=== PATIENT | female | born 1945 | race Asian ===

== ENCOUNTER 2016-03-16 09:24 | Day surgery (SDC) | payer OTHER, BC ==
[2016-03-11 17:52] VITALS: BMI 18.3
[~2016-03-16 09:24] MED LIST: ACETAMINOPHEN 325 MG TABLET (FP) PO PRN; LIDOCAINE HCL 1% PRESERVATIVE FREE - 30ML VIAL IO ONE
[2016-03-16] MEDS ORDERED: PHENYLEPHRINE 2.5% OPHTH SOLN 15 ML BOTTLE ONE (09:42)
[2016-03-16] MEDS ORDERED: CIPROFLOXACIN 0.3% EYE DROPS 5 ML BOTTLE ONE (09:42)
[2016-03-16] MEDS ORDERED: FLURBIPROFEN 0.03% OPHTH SOLN 2.5 ML BOTTLE ONE (09:42)
[2016-03-16] MEDS ORDERED: TROPICAMIDE 1% OPHTH SOLN 15 ML BOTTLE ONE (09:42)
[2016-03-16] MEDS ORDERED: CYCLOPENTOLATE HCL 1% OPHTH SOLN 2 ML BOTTLE ONE (09:42)
[2016-03-16 09:49] VITALS: TEMP 97.3
[2016-03-16] MEDS: PHENYLEPHRINE 2.5% OPHTH SOLN 15 ML BOTTLE OP SCH ×3 (09:55→10:05)
[2016-03-16] MEDS: FLURBIPROFEN 0.03% OPHTH SOLN 2.5 ML BOTTLE OP SCH ×3 (09:55→10:05)
[2016-03-16] MEDS: CIPROFLOXACIN HCL 0.3% OPHTH 2.5ML BOTTLE OP SCH ×3 (09:55→10:05)
[2016-03-16] MEDS: TROPICAMIDE 1% OPHTH SOLN 15 ML BOTTLE OP SCH ×3 (09:55→10:05)
[2016-03-16] MEDS: CYCLOPENTOLATE HCL 1% OPHTH SOLN 2 ML BOTTLE OP SCH ×3 (09:55→10:05)
[2016-03-16] MEDS ORDERED: LIDOCAINE HCL/PF 2% SDV 5ML VIAL ONE (11:06)
[2016-03-16] MEDS ORDERED: BUPIVACAINE HCL/PF 0.75% 10 ML VIAL ONE (11:06)
[2016-03-16] MEDS ORDERED: PROPOFOL 20 ML ONE (11:16)
[2016-03-16] MEDS ORDERED: MIDAZOLAM HCL 2 MG/2 ML SINGLE DOSE VIAL ONE (11:16)
[2016-03-16] MEDS ORDERED: BUPIVACAINE HCL/PF 0.75% 10 ML VIAL RB ONE (11:23)
[2016-03-16] MEDS ORDERED: LIDOCAINE HCL/PF 2% SDV 5ML VIAL PNB ONE ×2 (11:23→11:25)
[2016-03-16] MEDS ORDERED: BUPIVACAINE HCL/PF 0.75% 10 ML VIAL PNB ONE (11:25)
[2016-03-16] MEDS ORDERED: CHONDROITIN SU A/HYALUR SOD 1 KIT IO ONE (11:32)
[2016-03-16] MEDS ORDERED: LIDOCAINE HCL 1% PRESERVATIVE FREE - 30ML VIAL IO ONE (11:32)
[2016-03-16] MEDS ORDERED: TRYPAN BLUE 0.5 ML DISP.SYRIN ONE (11:33)
[2016-03-16] MEDS ORDERED: TRYPAN BLUE 0.5 ML DISP.SYRIN IO ONE (11:33)
[2016-03-16 12:54] VITALS: BP 113/58; PULSE 65
--- NOTE | 2016-03-16 13:45 | OP ---
DATE OF OPERATION: DATE OF DICTATION: 03/16/2016 PREOPERATIVE DIAGNOSIS: Cataract right eye. ASSOCIATIVE DIAGNOSIS: Persistent pupillary membrane. 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 PROCEDURE: Phacoemulsification of right cataract with posterior chamber intraocular lens implantation and capsular staining with trypan blue. Lens used was [id number] 21.0 Diopter power, Serial No. [id number]. ANESTHESIA: Peribulbar/modified van lint/MAC. COMPLICATIONS: None. PROCEDURE: The patient was brought to the operating room and correctly identified along with the operative site as well as correct intraocular lens zaragoza. She was then given a peribulbar block under sedation with 5 mL of 1:1 mixture of 2% lidocaine and 0.75% bupivacaine and 2 mL of the same mixture was given as a modified van lint eyelid block. The eye was then prepped and draped in the usual sterile fashion including 5% Betadine solution in the conjunctival sac and an eyelid drape. An eyelid speculum was then placed into the right eye. The eye was inspected and the persistent pupillary membrane was noted most prominently infratemporally. A paracentesis port was created and intracameral lidocaine was given. The anterior chamber was noted to immediately shallow and the patient was asked to refrain from any Valsalva maneuvers as well as barring down. The capsule was then stained with Trypan blue beneath an air bubble and the Trypan blue was removed with the topical lidocaine. Viscoelastic was injected to inflate the anterior chamber. A temporal clear corneal was created. A continuous circular capsulorrhexis was then performed. The nucleus was then hydro-dissected and removed with phacoemulsification via a [id number] approach. The remaining cortical material was irrigated and aspirated from the eye. Throughout the removal, however, persistent pupillary membranes were noted to come to the aspiration tips and this impeded 100% removal of the cortex. However a significant amount of cortex was removed. Viscoelastic was then injected to inflate the anterior chamber. The lens was then injected into the bag and with the lens in the bag further cortical removal was performed. The Viscoelastic was fully removed from the eye. All wounds were tested and found to be watertight. No sutures were placed. The pupillary membrane was not noted to enter into any of the wounds. The eye well was noted to be well centered and covered by the anterior capsular border. Topical Vancomycin was given. The eye was patched and shielded. The patient was discharged from the operating room in stable condition. LINA WADSWORTH M.D. [id number]
== END 2016-03-16 13:00 | disposition home or self-care (01) ==
LOC: JASU-SURG 09:24
PROVIDERS: ATTEND Ophthalmology
PROC: 08RJ3JZ Replacement of Right Lens with Synthetic Substitute, Percutaneous Approach (ICD-10-PCS; principal; 2016-03-16 11:00)
DX: H26.20 Unspecified complicated cataract (principal); Q13.89 Other congenital malformations of anterior segment of eye; H40.20X0 Unspecified primary angle-closure glaucoma, stage unspecified